=== PATIENT | male | born 1980 | race Caucasian/White ===

== ENCOUNTER → 2019-04-15 07:05 | Outpatient (CLI) | payer OTHER, SELFPAY ==
[2019-04-15 08:18] LABS: Hematocrit 43.9 % (41-53); Hemoglobin 14.4 g/dL (13.5-17.5); Mean Corpuscular HGB Conc 32.8 % (30-36); Mean Corpuscular Hemoglobin 26.9 PG (26-34); Mean Corpuscular Volume 81.9 fL (80-100); Platelet Count 306 X10^3/uL (150-400); Red Blood Cell Count 5.36 X10^6/uL (4.5-5.9); Red Cell Distribution Width 13.4 % (11.6-14.8); White Blood Cell Count 7.3 X10^3/uL (4.5-11.0)
[2019-04-15 08:22] LABS: Alanine Aminotransferase 47 IU/L (21-72); Albumin 4.5 g/dL (3.5-5.0); Albumin Globulin Ratio 1.2 (1.0-2.8); Alkaline Phosphatase 99 U/L (38-126); Aspartate Aminotransferase 39 IU/L (17-59); BUN Creatinine Ratio 14.4 (6-22); Bilirubin Total 0.6 mg/dL (0.2-1.3); Blood Urea Nitrogen 13 mg/dL (9-20); Calcium 9.8 mg/dL (8.4-10.2); Carbon Dioxide 28 mmol/L (22-32); Chloride 100 mmol/L (98-107); Cholesterol 194 mg/dL (140-199); Estimated Glomerular Filt Rate > 60.0 mL/min (>60); Globulin 3.7 g/dL (1.7-4.1); Glucose 96 mg/dL (70-100); HDL Cholesterol 35 mg/dL (40-60); HEMOLYSIS < 15 (0-50); LDL Cholesterol Calculated 126 mg/dL (<100); Potassium 3.9 mmol/L (3.4-5.1); Sodium 138 mmol/L (137-145); Total Protein 8.2 g/dL (6.3-8.2); Triglycerides 165 mg/dL (35-150)
[2019-04-15 08:50] LABS: TSH w/ Reflex to FT4 1.58 uIU/mL (0.47-4.68)
[2019-04-15 09:01] LABS: Neutrophils Absolute Manual 5110 /uL (3000-5900); Total Cells Counted 100
[2019-04-15 09:02] LABS: RBC Morphology Normal Morphology
== END ==
PROVIDERS: PCP Family Medicine; Visit Provider Family Medicine
DX: I10 Essential (primary) hypertension (principal); R53.83 Other fatigue
CPT/HCPCS: 36415; 80053; 80061; 84443; 85025

== ENCOUNTER → 2020-02-08 12:02 | Outpatient (CLI) | payer OTHER, SELFPAY ==
[2020-02-08 12:49] LABS: Add Manual Diff / Slide Review NO; Appearance Urine UA CLEAR; Basophils Absolute Auto 0 /uL (0-100); Basophils Percent Auto 0.5 % (0-2); Bilirubin Urine UA NEGATIVE (NEGATIVE); Color Urine UA YELLOW; Eosinophils Absolute Auto 100 /uL (0-450); Eosinophils Percent Auto 0.8 % (2-4); Glucose Urine UA NEGATIVE (Negative); Hematocrit 43.6 % (41-53); Hemoglobin 14.4 g/dL (13.5-17.5); Ketones Urine UA NEGATIVE (NEGATIVE); Leukocyte Esterase Urine UA NEGATIVE (NEGATIVE); Lymphocytes Absolute Auto 1100 /uL (1100-4500); Lymphocytes Percent Auto 12.9 % (25-40); Mean Corpuscular HGB Conc 33.1 % (30-36); Mean Corpuscular Hemoglobin 26.7 PG (26-34); Mean Corpuscular Volume 80.6 fL (80-100); Monocytes Absolute Auto 700 /uL (0-900); Monocytes Percent Auto 8.5 % (3-14); Neutrophils Absolute Auto 6500 /uL (1500-7000); Neutrophils Percent Auto 77.3 % (50-75); Nitrite Urine UA NEGATIVE (Negative); Occult Blood Urine UA TRACE-LYSED (Negative); Platelet Count 218 X10^3/uL (150-400); Protein Urine UA NEGATIVE (Negative); Red Blood Cell Count 5.41 X10^6/uL (4.5-5.9); Red Cell Distribution Width 13.8 % (11.6-14.8); Specific Gravity Urine UA 1.015 (1.000-1.035); Urobilinogen Urine UA 0.2 E.U./dL (0.2); White Blood Cell Count 8.4 X10^3/uL (4.5-11.0); pH Urine UA 6.5 (4.5-8.0)
[2020-02-08 13:02] LABS: Alanine Aminotransferase 34 IU/L (<50); Albumin 4.6 g/dL (3.5-5.0); Albumin Globulin Ratio 1.2 (1.0-2.8); Alkaline Phosphatase 85 U/L (38-126); Amylase 91 U/L (30-110); Aspartate Aminotransferase 34 IU/L (17-59); Bilirubin Total 0.5 mg/dL (0.2-1.3); Blood Urea Nitrogen 13 mg/dL (9-20); Calcium 9.9 mg/dL (8.4-10.2); Carbon Dioxide 28 mmol/L (22-32); Chloride 102 mmol/L (98-107); Estimated Glomerular Filt Rate > 60.0 mL/min (>60); Globulin 3.8 g/dL (1.7-4.1); Glucose 122 mg/dL (70-100); HEMOLYSIS < 15 (0-50); Potassium 3.7 mmol/L (3.4-5.1); Sodium 138 mmol/L (137-145); Total Protein 8.4 g/dL (6.3-8.2)
[2020-02-08 13:21] LABS: Bacteria Urine Occasional (0-1); Culture Indicated Urine Cult Not Indicated; RBC Urine 0-1/HPF (0-5/HPF); WBC Urine 0-1/HPF (0-5/HPF)
== END ==
PROVIDERS: PCP Family Medicine; Referring Provider Family Medicine; Visit Provider Family Medicine
DX: R10.32 Left lower quadrant pain (principal)
CPT/HCPCS: 36415; 80053; 81001; 82150; 85025

== ENCOUNTER → 2020-02-09 09:14 | Outpatient (CLI) | payer OTHER, SELFPAY ==
--- NOTE | 2020-02-09 09:46 | DI.CT.S_ITS ---
PROCEDURE: CT ABDOMEN PELVIS WO/W CON INDICATIONS: left lower flank pain TECHNIQUE: After the administration of oral contrast, 5 mm thick sections acquired from the diaphragms to the iliac crests. After the administration of intravenous contrast, 5 mm thick sections acquired from the diaphragms to the symphysis. 5 mm thick coronal and sagittal reformats were acquired. For radiation dose reduction, the following was used: automated exposure control, adjustment of mA and/or kV according to patient size. COMPARISON: None. FINDINGS: Image quality: Excellent. ABDOMEN: Lung bases: Lung bases are clear. Heart size is normal. Solid organs: Liver is normal in size and enhancement. Gallbladder appears normal. Biliary system is non-dilated. Pancreas enhances normally. Spleen is normal in size and enhancement. No adrenal nodules. Both kidneys are normal in size. No hydronephrosis or nephrolithiasis. There are several renal cortical cysts, present bilaterally, and the smaller cysts are too small to accurately characterize by CT scanning due to volume averaging. The largest cyst at the upper cortex of the left kidney measures water density. Bowel and peritoneum: Stomach, small and large bowel loops are normal in caliber and wall thickness. No free fluid or air. Nodes and vessels: No retroperitoneal or mesenteric adenopathy by size criteria. Aorta and inferior vena are normal in caliber. Miscellaneous: No ventral hernias. PELVIS: Genitourinary: Bladder wall thickness is normal. Miscellaneous: No inguinal hernias or adenopathy. At the left lower quadrant there is relatively extensive sigmoid diverticulosis noted, with definite acute diverticulitis at the junction of the descending colon as it enters the sigmoid colon. This is best seen centered on series 2 image 73 and there is no sign of peridiverticular abscess. Additionally, stranding in the pericolonic fat more posteriorly on the left is present to a slight degree, centered on series 6 image 88, chronicity uncertain. Bones: No suspicious bony lesions. No vertebral body compression fractures. IMPRESSION: Acute diverticulitis is present at the junction of the descending colon as its transitions to the sigmoid colon. The sigmoid colon itself demonstrates an unusually large number of diverticula for a young patient of age 39. No peridiverticular abscess is present. Additional slight stranding more posteriorly at the posterior third of the sigmoid colon may reflect inflammatory scarring from prior acute diverticulitis in that area. Alternatively, slight acute posterior left-sided diverticulitis in addition to the more evident diverticulitis anteriorly on the left could explain the appearance. Dictated by: Silvestre Ballard M.D. on 02/09/2020 at 10:31 Approved by: Silvestre Ballard M.D. on 02/09/2020 at 10:38
== END ==
PROVIDERS: PCP Family Medicine; Referring Provider Family Medicine; Visit Provider Family Medicine
DX: R10.32 Left lower quadrant pain (principal); N28.1 Cyst of kidney, acquired; K57.32 Diverticulitis of large intestine without perforation or abscess without bleeding
CPT/HCPCS: 74178; Q9967

== ENCOUNTER → 2024-03-08 16:53 | Outpatient (CLI) | payer OTHER, SELFPAY ==
[2024-03-08 17:16] LABS: Add Manual Diff / Slide Review NO; Basophils Absolute Auto 0 /uL (0-100); Basophils Percent Auto 0.4 % (0-2); Eosinophils Absolute Auto 200 /uL (0-450); Eosinophils Percent Auto 1.5 % (2-4); Hematocrit 37.3 % (41-53); Hemoglobin 12.1 g/dL (13.5-17.5); Lymphocytes Absolute Auto 1500 /uL (1100-4500); Lymphocytes Percent Auto 13.6 % (25-40); Mean Corpuscular HGB Conc 32.5 % (30-36); Mean Corpuscular Hemoglobin 26.4 PG (26-34); Mean Corpuscular Volume 81.3 fL (80-100); Monocytes Absolute Auto 900 /uL (0-900); Neutrophils Absolute Auto 8600 /uL (1500-7000); Neutrophils Percent Auto 76.5 % (50-75); Platelet Count 407 X10^3/uL (150-400); Red Blood Cell Count 4.59 X10^6/uL (4.5-5.9); Red Cell Distribution Width 13.4 % (11.6-14.8); White Blood Cell Count 11.3 X10^3/uL (4.5-11.0)
[2024-03-08 21:43] LABS: Alanine Aminotransferase 38 IU/L (<50); Alkaline Phosphatase 72 U/L (38-126); Aspartate Aminotransferase 41 IU/L (17-59); BUN Creatinine Ratio 15.1 (6-22); Bilirubin Total 0.6 mg/dL (0.2-1.3); Blood Urea Nitrogen 13 mg/dL (9-20); Calcium 9.6 mg/dL (8.4-10.2); Carbon Dioxide 24 mmol/L (22-32); Chloride 106 mmol/L (98-107); Estimated Glomerular Filt Rate > 60 mL/min (>60); Globulin 3.9 g/dL (1.7-4.1); Glucose 90 mg/dL (70-100); HEMOLYSIS < 15 (0-50); Potassium 3.9 mmol/L (3.4-5.1); Sodium 139 mmol/L (137-145); Total Protein 7.9 g/dL (6.3-8.2)
== END ==
PROVIDERS: PCP Family Medicine; Referring Provider Family Medicine; Visit Provider Family Medicine
DX: K57.32 Diverticulitis of large intestine without perforation or abscess without bleeding (principal)
CPT/HCPCS: 36415; 80053; 85025

== ENCOUNTER → 2024-03-11 08:56 | Outpatient (CLI) | payer OTHER, SELFPAY ==
--- NOTE | 2024-03-11 08:56 | DI.CT.S_ITS ---
PROCEDURE: CT ABDOMEN PELVIS W CON INDICATIONS: diverticulitis possible absceses TECHNIQUE: After the administration of intravenous contrast, axial sections acquired from the lung bases to the pubic symphysis. Coronal and sagittal reformats were performed. For radiation dose reduction, the following was used: automated exposure control, adjustment of mA and/or kV according to patient size. COMPARISON: [facility], CT, CT ABDOMEN PELVIS WO/W CON, 02/09/2020, 9:18. FINDINGS: Image quality: Diagnostic. Lower Chest: Oval 3.4 x 2.1 cm mass is seen at the posterior medial right lower extrapleural space between the 9th and 10th ribs (06/30). In retrospect, this has increased in size when compared to the CT from 02/09/2020, previously measuring approximately 2.6 x 1.5 cm. ABDOMEN: Liver: No solid mass. Gallbladder: No radiopaque gallstones or wall thickening. Biliary ducts: No biliary dilation. Pancreas: No ductal dilation. Spleen: Size is within normal limits. Adrenal Glands: No adrenal nodules. Kidneys and Ureters: No hydronephrosis. No solid mass. No complex renal cystic lesion which requires follow up. Bilateral hypoattenuating renal lesions are again mostly too small to characterize and not significantly changed compared to CT from 02/09/2020. Stable benign left upper pole renal cyst. Bowel and peritoneum: Multiple diverticula are seen in the colon. There is bowel wall thickening and fat stranding adjacent to the sigmoid colon consistent with diverticulitis. Inferior to the: Along the superior wall of the bladder, there is a thick-walled collection of fluid and gas with fluid-filled component measuring approximately 5.9 x 3.0 x 5.0 cm. Adjacent linear Nathan changes track superiorly towards the colon. Small amount of fluid and gas is also seen superior to the sigmoid colon measuring up to 2.4 x 1.6 by 1.7 cm with ill-defined margins. No separate free air is seen. Small bowel loops and stomach are unremarkable. Oral contrast material is seen extending to the ascending colon. Ventral Wall: No significant ventral hernia. Abdominal Nodes: No retroperitoneal or mesenteric adenopathy by size criteria. Vessels: Aorta and inferior vena cava are normal in size. PELVIS: Pelvic Organs: Unremarkable. Bladder: Superior bladder wall thickening is seen adjacent to the abscess. No intraluminal gas is seen. Pelvic Nodes: No enlarged lymph nodes. Miscellaneous: No inguinal hernias are seen. Bones: No aggressive osseous abnormality. IMPRESSION: 1. Ruptured sigmoid colon diverticulitis with adjacent collection of fluid and gas along the superior wall of the bladder suspicious for abscess. No intraluminal gas is seen within the bladder. Small foci of inflammatory tissue and gas are seen along the superior and lateral margins of the sigmoid colon without significant associated fluid. No separate focus of free air within the remainder of the abdomen or pelvis. 2. 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 Attempt was made to contact the ordering provider at the time of this dictation and additional attempts will be made. Approved by: Taras Barton M.D. on 03/11/2024 at 11:43
== END ==
LOC: CT 08:56
PROVIDERS: PCP Family Medicine; Referring Provider Family Medicine; Visit Provider Family Medicine
DX: K57.32 Diverticulitis of large intestine without perforation or abscess without bleeding (principal); R93.89 Abnormal findings on diagnostic imaging of other specified body structures; N28.1 Cyst of kidney, acquired
CPT/HCPCS: 74177; Q9967

== ENCOUNTER → 2024-03-16 09:59 | Outpatient (CLI) | payer OTHER, SELFPAY ==
--- NOTE | 2024-03-16 12:30 | DI.CT.S_ITS ---
PROCEDURE: CT ABDOMEN PELVIS W CON INDICATIONS: f/u diverticulititis TECHNIQUE: After the administration of intravenous contrast, axial sections acquired from the lung bases to the pubic symphysis. Coronal and sagittal reformats were performed. For radiation dose reduction, the following was used: automated exposure control, adjustment of mA and/or kV according to patient size. COMPARISON: Merged With [facility], CT, CT ABDOMEN PELVIS WO/W CON, 02/09/2020, 9:18. Merged With [facility], CT, CT ABDOMEN PELVIS W CON, 03/11/2024, 9:59. FINDINGS: Image quality: Diagnostic. Lower Chest: 3.5 by 2.3 centimeter pleural based mass in the medial aspect of the right lung base stable compared to March 11, 2024. ABDOMEN: Liver: No solid mass. Diffuse fatty infiltration of the liver. Gallbladder: No radiopaque gallstones or wall thickening. Biliary ducts: No biliary dilation. Pancreas: No ductal dilation. Spleen: Size is within normal limits. Adrenal Glands: No adrenal nodules. Kidneys and Ureters: No hydronephrosis. No solid mass. No complex renal cystic lesion which requires follow up. Stomach and Bowel: Multiple colonic diverticuli. Circumferential wall thickening adjacent inflammation involving the sigmoid colon compatible with diverticulitis. Diverticular inflammatory changes have diminished compared to March 11, 2024. There is a 2.7 x 3.0 x 2.1 centimeter thick-walled fluid collection situated between the sigmoid colon in the urinary bladder consistent with peridiverticular abscess which is decreased in size compared to March 11, 2024. Small air locules in the mesocolon at superior margin of the sigmoid colon. The appendix is normal. Ventral Wall: No significant ventral hernia. Abdominal Nodes: No retroperitoneal or mesenteric adenopathy by size criteria. Vessels: Aorta and inferior vena cava are normal in size. PELVIS: Pelvic Organs: Unremarkable. Bladder: No bladder wall thickening, accounting for underdistention. Pelvic Nodes: No enlarged lymph nodes. Miscellaneous: No inguinal hernias are seen. Bones: No aggressive osseous abnormality. IMPRESSION: Sigmoid colon diverticulitis. Inflammatory changes have diminished compared to March 11, 2024. Peridiverticular abscess and free air consistent with diverticular rupture. Peridiverticular abscess is decreased in size compared to March 11, 2024. Stable right basilar pleural based mass. Recommend PET-CT scan and/or biopsy for definitive characterization. Hepatic steatosis. Dictated by: Zaida Martinez MD, PhD on 03/16/2024 at 11:44 Approved by: Zaida Martinez MD, PhD on 03/16/2024 at 11:55
== END ==
PROVIDERS: PCP Family Medicine; Referring Provider Surgery; Visit Provider Surgery
DX: K57.20 Diverticulitis of large intestine with perforation and abscess without bleeding (principal); J94.9 Pleural condition, unspecified; K76.0 Fatty (change of) liver, not elsewhere classified
CPT/HCPCS: 74177; 99214; Q9967

== ENCOUNTER 2024-03-18 12:19 | Inpatient (IN) | payer OTHER, SELFPAY ==
[2024-03-17 09:40] VITALS: BMI 36.9
[2024-03-18] VITALS (13 sets, daily range): BP systolic 114–137; BP diastolic 67–93; PULSE 79–101; RESP 5–20; TEMP 35.4–37.2; O2SAT 93–99; BMI 36.9
--- NOTE | 2024-03-18 | PATH_ITS ---
[facility] Accession Number: [id number] No. of containers..01 Tissue . 01 Material submitted: . sigmoid colon - SIGMOID COLON, SEGMENTAL RESECTION . 01 Diagnosis: SIGMOID COLON, SEGMENTAL RESECTION: 1. Severe diverticulitis, with submucosal abscess formation, areas of fat necrosis and active serositis. 2. Twelve reactive lymph nodes with no evidence of neoplasia. 3. Mural inflammation and fat necrosis approximates one (blue-inked) stapled surgical margin. [facility] 03/24/2024 1721 Local . 01 Electronically signed: . Sudeep Willett MD, Pathologist NPI- [id number] . 01 Gross description: . Received in formalin with no identifiers or designation (authorization form received), is an unoriented looped portion of bowel, 30.6 cm in length and 3.0 to 3.5 cm in diameter with creeping firm fat. The serosa is abreu to congested. One staple line is inked blue, the opposite staple line is inked black, and the mesenteric margin is inked green. The lumen is universally narrow, approximately 0.1 to 0.2 cm in diameter, but is probe patent. The mucosa is pink-abreu and velvety with contorted folds and no distinct lesions identified. The joel are diffusely thickened and firm measuring up to 0.7 cm thick with multiple diverticula identified measuring up to 1.1 cm with several containing brown hard fragments consistent with fecaliths measuring up to 0.7 cm in greatest dimension. Several areas of adjacent fat are odell-abreu and soft, consistent with necrosis, but no distinct areas of perforation are grossly identified. Palpation reveals 12 abreu lymph node candidates ranging from 0.2 to 0.6 cm in greatest dimension. . [employer]ed [employer] Installer sections are submitted as follows: A1: Rep margins en face. A2-A3: Diverticula. A4-A5: Fibrotic and possibly necrotic adipose with full thickness colon. A6-A7: Additional full thickness sections. A8: Two differentially inked bisected lymph node candidates. A9: Two differentially inked bisected lymph node candidates. A10: Two differentially inked bisected lymph node candidates. A11: Two differentially inked bisected lymph node candidates. A12: Two intact lymph node candidates. A13: Single bisected lymph node candidate. A14: Single bisected lymph node candidate. ([id number]) /MRV 03/24/2024 1721 Local . 01 Pathologist provided ICD-10: K57.32 . 01 CPT . 287405 Specimen Comment: A courtesy copy of this report has been sent to [phone] Performed at: [address] [facility] [address], [place], [place] [id number] MD Sudeep Willett MD Phone: [phone]
[2024-03-18] MEDS: ACETAMINOPHEN 325 MG TABLET 975 MG PO (12:53)
[2024-03-18] MEDS: LACTATED RINGERS 1,000 ML 42 ML IV ×4 (12:57→18:30)
--- NOTE | 2024-03-18 14:44 | PM.PREOP ---
Pre-operative Note Interval Note History & Physical reviewed/Exam performed by Physician: Yes Changes to H&P: No
[2024-03-18] MEDS: PIPERACILLIN/TAZO 3.375 GM in SODIUM CHLORIDE 0.9% 100 ML IV ×2 (15:21→20:04)
[2024-03-18] MEDS: BUPIVACAINE 0.25% (PF) VIAL 30 ML INJ (16:38)
--- NOTE | 2024-03-18 19:12 | SUR.OPER ---
Lithotomy on padded OR bed. [place] Pad Positioner under torso. Head on pillow, arms padded and tucked at sides. Legs secured in padded yellow fins stirrups.
--- NOTE | 2024-03-18 19:17 | P.OP_ITS ---
Operative Date/Time/Diagnoses Date of procedure: 03/18/24 Time of procedure: 19:17 Pre-op diagnosis: Perforated diverticulitis, intra-abdominal abscess Post-op diagnosis: same Procedure & Clinicians Procedure: Laparoscopic assisted sigmoid colectomy Placement of ventral hernia mesh Same procedure as scheduled: Yes Indications: Tate is a 43-year-old man with a long history of diverticulitis. He had an episode of complicated diverticulitis with perforation and subsequent formation of a intra-abdominal abscess between the colon and the bladder. Abscess was not amenable to percutaneous drainage. He has had 2 weeks of antibiotic therapy and is failing to improve. He is taken to the operating room today for a sigmoid colectomy with possible ostomy. Surgeon: Kerwin Richards Electronics Recycler: Shoaib Perez Anesthesia Type: General Operative Notes Findings: Negative leak test Sigmoid colon adherent to the abdominal wall down to the level of the pelvic floor. The mid rectum is soft and pliable Specimen(s): other (Sigmoid colon) Estimated Blood Loss (mL): 500 Procedure in detail: The patient was brought to the operating room and placed supine on the table. Bilateral lower extremity compression devices were applied. General anesthesia was induced and they were intubated with an endotracheal tube. They were placed in the lithotomy position and prepped and draped in sterile fashion. A medina catheter was placed under sterile condition. They received 3.375 g of Zosyn prior to skin incision. Time-out was performed to ensure the correct patient procedure necessary equipment within the operating room. An infraumbilical 1 cm incision was made, the umbilical stalk was elevated, the fascia was sharply incised and the abdomen was entered atraumatically. Pneumoperitoneum was established. The laparoscope was inserted into the abdomen, inspection was made there was no evidence of injury upon entry. 5 mm ports were placed suprapubic, left lower quadrant and a 12 mm trocar in the right lower quadrant. There was significant intra abdominal obesity which made exposure of the sigmoid colon quite difficult. We mobilized the descending colon along its lateral attachment following the white line of Toldt to the level of the splenic flexure. The sigmoid colon was densely adherent to the abdominal wall and with his intra- abdominal obesity it was difficult to proceed any further laparoscopically. We made a lower midline incision self-retaining retractor was placed. We used finger fracture to separate the colon from the pelvic sidewall and sigmoid colon was essentially rigid all the way down to the level of the pelvic floor. We were able to identify the left ureter as noted by its vermiculation and this was kept posterior out of harm's way. We encountered multiple abscess cavities within the pelvis which were largely devoid of purulent material but the rind was resected. Window within the distal colon at the junction of the descending and sigmoid colon where the bowel was soft and pliable was made and then the bowel was divided using the contour stapler. The mesentery was divided close to the bowel wall using the ligature. The distal point of transection was distal to the rectosigmoid junction where the bowel was soft and pliable. The specimen was passed off the field labeled sigmoid colon. The rectum was sized and found to be 33 mm. The staple line was excised. A 3-0 Prolene suture was pursestrung and a 31 mm EEA anvil was placed. The distal colon reached to the pelvis without tension. The EEA stapler was advanced through the rectum and its point was deployed under direct visualization through the rectal staple line. Ensuring that the colon mesentery was without twist, the anvil and stapler were mated and the anastomosis was completed without tension. The stapler was removed. The proximal bowel was occluded, the pelvis filled with saline and insufflation of the rectum demonstrated no leak. The abdomen was copiously irrigated and hemostasis checked. The midline fascia was closed with #PDS running fashion. I deemed him to be at significant risk of incisional hernia given his obesity, contaminated nature of the case and the length of the incision. Therefore we placed a sheet of Phasix mesh over the anterior sheath to reduce the risk of hernia formation. Bilateral skin flaps were raised and a 20 x25 cm sheet of mesh was trimmed to size and then secured to the anterior sheath using Ethibond. The subcutaneous tissues were reapproximated using 3 0 Vicryl, skin closed with anastasia. The sponge instrument count at the end of the operation was correct. The patient emerged from general anesthesia, extubated and transferred to the postoperative care unit in stable condition. Complications: none Post-operative Condition: stable Disposition: Acute Care
[2024-03-18] MEDS: ONDANSETRON 4 MG/2 ML INJ IV (20:03)
[2024-03-18] MEDS: CELECOXIB 200 MG CAPSULE PO (21:32)
[2024-03-18] MEDS: SODIUM CHLORIDE 0.9% 1,000 ML 150 ML IV (21:33)
[2024-03-18] MEDS: OXYCODONE IR 5 MG TABLET PO (23:40)
[2024-03-18] MEDS: ACETAMINOPHEN 325 MG TABLET 650 MG PO (23:40)
[2024-03-19] VITALS (9 sets, daily range): BP systolic 113–129; BP diastolic 69–79; PULSE 66–90; RESP 16–18; TEMP 36.3–36.6; O2SAT 97–98
[2024-03-19] MEDS: PIPERACILLIN/TAZO 3.375 GM in SODIUM CHLORIDE 0.9% 100 ML IV ×2 (03:55→13:08)
[2024-03-19] MEDS: OXYCODONE IR 5 MG TABLET PO ×5 (03:59→22:47)
[2024-03-19] MEDS: SODIUM CHLORIDE 0.9% 1,000 ML 150 ML IV (03:59)
[2024-03-19 06:19] LABS: Add Manual Diff / Slide Review NO; Basophils Absolute Auto 0 /uL (0-100); Basophils Percent Auto 0.1 % (0-2); Eosinophils Absolute Auto 0 /uL (0-450); Hematocrit 33.1 % (41-53); Lymphocytes Absolute Auto 700 /uL (1100-4500); Lymphocytes Percent Auto 4.7 % (25-40); Mean Corpuscular HGB Conc 33.3 % (30-36); Mean Corpuscular Hemoglobin 26.8 PG (26-34); Mean Corpuscular Volume 80.5 fL (80-100); Monocytes Absolute Auto 900 /uL (0-900); Monocytes Percent Auto 6.6 % (3-14); Neutrophils Absolute Auto 12600 /uL (1500-7000); Neutrophils Percent Auto 88.6 % (50-75); Platelet Count 391 X10^3/uL (150-400); Red Blood Cell Count 4.11 X10^6/uL (4.5-5.9); Red Cell Distribution Width 13.7 % (11.6-14.8); White Blood Cell Count 14.2 X10^3/uL (4.5-11.0)
[2024-03-19 06:30] LABS: BUN Creatinine Ratio 12.4 (6-22); Blood Urea Nitrogen 11 mg/dL (9-20); Carbon Dioxide 25 mmol/L (22-32); Chloride 108 mmol/L (98-107); Estimated Glomerular Filt Rate > 60 mL/min (>60); Glucose 142 mg/dL (70-100); HEMOLYSIS < 15 (0-50); Potassium 4.5 mmol/L (3.4-5.1); Sodium 136 mmol/L (137-145)
[2024-03-19] MEDS: ACETAMINOPHEN 325 MG TABLET 650 MG PO ×2 (09:55→20:19)
[2024-03-19] MEDS: CELECOXIB 200 MG CAPSULE PO ×2 (09:55→20:18)
--- NOTE | 2024-03-19 11:28 | CM.DANOTE ---
Initial DCP Assessment Note Pt is a 43 yo male, resident of [place], now POD#1 from lap assisted colectomy by Dr Richards. PCP: Grant Parikh Payer: UMR Reviewed chart, pt discussed in multidisciplinary rounds this morning. Patient expected to be admitted for an additional 3-5 days. 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 Indp and active at baseline. No barriers identified at this time to patient's safe discharge home w/family to assist; close outpatient f/u recommended. CM team will plan to follow clinical course closely in case any DC needs or concerns arise. DALTON Esquivel Discharge Planning/Care Management CM Discharge Assessment Start: 03/19/24 11:20 Freq: Status: Active Protocol: Document 03/19/24 11:20 MENDOZA (Rec: 03/19/24 11:28 MENDOZA [id number]) Discharge Planning Assessment Assigned Band Director DALTON Pablo DPOA/Assigned Designee Name Altagracia Sherwood, spouse Contact Information [phone] Advance Directives? No History Provided By Patient,Family Member,Medical Record Prior Living Arrangements House Household Members spouse,children Type of transporation used prior to Drives own vehicle admit Independent with ADL's Yes Is patient alert and oriented? Yes Barriers to Discharge No Discharge Plan Home Transportation Arrangement Family Referrals Initiated None needed
--- NOTE | 2024-03-19 12:15 | P.PN_ITS ---
Subjective Subjective Date Patient Seen: 03/19/24 Time Patient Seen: 12:15 Interval history: Postoperative day 1 status post sigmoid colectomy for complicated diverticulitis No major overnight events. Incisional pain but controlled. No nausea. Exam Vital Signs (past 8 hours): - 03/19/24 04:30 03/19/24 07:00 03/19/24 08:00 Temperature 97.9 F 97.4 F L Pulse Rate 74 66 Respiratory Rate 16 18 Blood Pressure 120/79 113/75 Pulse Oximetry 97 97 97 Oxygen Delivery Method Room Air Oxygen Flow Rate 0 0 03/19/24 09:25 Temperature Pulse Rate Respiratory Rate Blood Pressure Pulse Oximetry Oxygen Delivery Method Room Air Oxygen Flow Rate Oxygen Delivery Method Room Air Oxygen Flow Rate 0 Narrative Exam Narrative: General adult man alert oriented no acute distress Chest nonlabored respiration Abdomen appropriately tender to palpation. Objective Labs 03/19/24 05:00 03/19/24 05:00 Labs: Laboratory Results - last 24 hr 03/19/24 05:00 WBC 14.2 H RBC 4.11 L Hgb 11.0 L Hct 33.1 L MCV 80.5 MCH 26.8 MCHC 33.3 RDW 13.7 Plt Count 391 Neut % (Auto) 88.6 H Lymph % (Auto) 4.7 L [place] % (Auto) 6.6 Eos % (Auto) 0.0 L Baso % (Auto) 0.1 Neut # (Auto) 20325 H Lymph # (Auto) 700 L [place] # (Auto) 900 Eos # (Auto) 0 Baso # (Auto) 0 Sodium 136 L Potassium 4.5 Chloride 108 H Carbon Dioxide 25 BUN 11 Creatinine 0.89 Estimated GFR > 60 BUN/Creatinine Ratio 12.4 Glucose 142 H Calcium 9.0 PFSH Medical History COVID-19 (06/2023) Surgical History [place] teeth removed History of surgery Social History marital status: number of children: 2 household members: spouse and children Smoking Status: Never smoker alcohol intake: never substance use type: does not use Assessment & Plan Post-op Postoperative Procedures: Procedures Operation Date: 03/18/24 13:45 Actual Procedure Side Surgeon p SIGMOID COLECTOMY WITH PLACEMENT OF VENTRAL MESH Not Applicable Kerwin Richards MD Postoperative status narrative: 43-year-old man postoperative day 1 status post sigmoid colectomy for complicated diverticulitis. Doing well continue with routine postoperative care. -full liquid diet advance what when return of bowel function -DC IV fluids -SCDs and prophylactic Lovenox -remove Pedraza catheter -PTOT Quality VTE Deep Vein Thrombosis/Pulmonary Embolism Present on Admission: No
--- NOTE | 2024-03-19 16:00 | OT.IP.EVAL ---
Current Diagnoses Diverticulitis of large intestine without perforation or abscess without bleeding (03/18/24) Surgery Performed Operation Date: 03/18/24 13:45 Actual Procedures p SIGMOID COLECTOMY WITH PLACEMENT OF VENTRAL MESH(Not Applicable) - Kerwin Richards MD Past Medical History (Last Reviewed 03/17/24 @ 16:11 by Kerwin Richards MD) COVID-19 (06/2023) Surgical History (Last Reviewed 03/17/24 @ 16:11 by Kerwin Richards MD) History of surgery [place] teeth removed Occupational Therapy Inpatient Evaluation/Re-Eval M1 PT/OT-IP Prior Functional Status Start: 03/19/24 12:56 Freq: NEEDED Status: Active Protocol: Document 03/19/24 15:33 [facility] (Rec: 03/19/24 16:00 [facility] [id number]) Medical Review Prior Functional Status Communication Independent Mobility and Gait Independent with no devices. 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 Social History Household Members spouse,children Living Arrangements House Number of Floors (Floors) Two Floors Number of Stairs To Enter/Railing? No steps to enter. 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 M2 OT-IP Current Condition Start: 03/19/24 12:56 Freq: Status: Active Protocol: Document 03/19/24 15:33 [facility] (Rec: 03/19/24 16:00 [facility] [id number]) Occupational Therapy Current Condition Current Condition Evaluation Date 03/19/24 Treatment Diagnosis Perforated diverticulitis, laparoscopic assisted sigmoid colectomy Diagnosis Onset Date 03/18/24 Post Operative Precautions Abdominal Surgery Precautions Log Roll,Lifting Restrictions, Gait Belt above Incisional Area M3 OT- IP Subjective and Pain Start: 03/19/24 12:56 Freq: Status: Active Protocol: Document 03/19/24 15:33 [facility] (Rec: 03/19/24 16:00 [facility] [id number]) OT- Subjective Occupational Therapy Visit Type Type Initial Evaluation Visit Start Time 11:30 Visit Stop Time 12:00 Occupational Therapy Visit Comments Patient Comments Pt agreed to get up. Patient/Caregiver Goals To go home. OT Pain Assessment Pain When Pain Assessed At Rest Pain Present Pain Present Pain Reported Location abdomen Intensity 4 Scale Used Numeric (0 - 10) M4 OT- IP ADL's Start: 03/19/24 12:56 Freq: Status: Active Protocol: Document 03/19/24 15:33 [facility] (Rec: 03/19/24 16:00 [facility] [id number]) OT ADL-Grooming General Evaluation Grooming Ability Standby Assistance Areas Needing Assistance Retrieving/Set-up of Grooming Items Comments OT Grooming Comments While seated. OT ADL-Oral Care General Eval Oral Care Ability Independent OT ADL-Dressing General Eval Lower Body Dressing Ability Maximum Assistance Areas Needing Assistance Socks Comments OT Dressing Comments Able to go over LB dressing equipment and issued to pt as pt having pain while reaching for LB dressing needs. OT ADL-Toileting Comments OT Toileting Comments Not performed. Suggested use of wet wipes and to stand for hygiene needs. Spoke of bidet, toilet paper aid , versus may need assist for completeness to wipe due to his pain. OT ADL-Bathing Comments OT Bathing Comments Suggested pt get a shower chair for safety as a little unsteady on his feet. M5 OT- IP IADL's Start: 03/19/24 12:56 Freq: Status: Active Protocol: Document 03/19/24 15:33 [facility] (Rec: 03/19/24 16:00 [facility] [id number]) OT-Instrumental Activities of Daily Living Deficits IADL Deficits Identified Deficits Home Safety Awareness Awareness of Need for Assistance at Home Good Awareness Ability to Problem Solve Emergency Able to Problem Solve Situations Home Safety Comments Pt a little groggy, and has a supportive who is a PT to be able to assist wit his needs. M6 OT- IP Functional Cognition Start: 03/19/24 12:56 Freq: Status: Active Protocol: Document 03/19/24 15:33 [facility] (Rec: 03/19/24 16:00 [facility] [id number]) Cognitive Factors Limiting Selfcare Function Cognitive Ability Level of Alertness Alert,Drowsy Patient Orientation Name,Place,Situation Attention Span Ability Capable of Focused Attention, Capable of Sustained Attention Ability to Follow Commands Able to Follow One Step Commands with Increased Time, Able to Follow One Step Commands with Repetition Cognitive Comments Cognitive Assessment Comments Pt very groggy and needing step by step commands to follow log rolling and safety needs. OT- Vision and Hearing OT- Hearing Assessment OT- Hearing Assessment WFL OT- Vision Assessment Visual Acuity WFL,Glasses All The Time, Contact Lenses Visual Attentiveness WFL Occular Pursuits WFL M7 OT- IP Mobility and Balance Start: 03/19/24 12:56 Freq: Status: Active Protocol: Document 03/19/24 15:33 [facility] (Rec: 03/19/24 16:00 [facility] [id number]) OT- Bed Mobility Assessment Supine to Sit Supine to Sit Assist Contact Guard Assistance Scooting Scooting to Edge of Bed Contact Guard Assistance OT-Transfer Assessment Sit to and From Stand Sit to and from Stand Minimal Assistance Transfers Transfer Ability Contact Guard Assistance, Minimal Assistance Technique Transfer Destination Bed,Chair Transfer Technique Stand Step Pivot Devices Transfer Assistive Devices Gait Belt,Front Wheeled Walker Comments Mobility Comments CGA for bed mobility to be sure to keep his trunk in side-lying before getting up to the edge of the bed. CGA to stand to the FWW and CGA/PAULA to transfer to the recliner. OT- Balance Assessment Sitting Balance and Reactions Static Sitting Balance Ability Good Dynamic Sitting Balance Ability Good Standing Balance and Reactions Static Standing Balance Ability Fair Dynamic Standing Balance Ability Fair M8 OT- IP Objective Assessments Start: 03/19/24 12:56 Freq: Status: Active Protocol: Document 03/19/24 15:33 [facility] (Rec: 03/19/24 16:00 [facility] [id number]) OT Gross Range of Motion Upper Extremity Range of Motion Assessment Within Functional Limits OT Strength Upper Extremity Strength Assessment Within Functional Limits OT-Muscle Tone Assessment Muscle Tone WNL Yes M9 OT- IP Assessment and Plan Start: 03/19/24 12:56 Freq: Status: Active Protocol: Document 03/19/24 15:33 [facility] (Rec: 03/19/24 16:00 [facility] [id number]) OT Summary Assessment and Plan Potential Rehabilitation Potential Excellent Analytic Complexity at Evaluation Low Summary OT Impairments Pain,Balance,Functional Mobility,Dressing,Toileting, Bathing,Toilet Transfers, Shower Transfers,Activity Tolerance Progress Towards Goals Progressing Toward Goals Assessment Summary Pt low complexity and main barriers are pain and a bit groggy from surgery. Able to educated pt on abdominal surgery precautions, practice use of LB dressing equipment which was issued, and also able to suggest other ADL equipment needs. Pt's in ICU PT and is very capable to be able to assist pt for all his needs at home. Pt to go home when medically stable with assist. Discharge pt from OT services. Frequency of Treatment Frequency Of Treatment Discharge Discharge Recommendations OT Discharge Recommendations Home with 21/04 Assist Available Transportation Needs at Discharge Private Vehicle
--- NOTE | 2024-03-19 16:07 | OT.IPNOTE ---
Discharge pt from OT services. Pt to go home with his supportive , when medically stable.
--- NOTE | 2024-03-19 17:11 | PT.IIE ---
Current Diagnoses Diverticulitis of large intestine without perforation or abscess without bleeding (03/18/24) Surgery Performed Operation Date: 03/18/24 13:45 Actual Procedures p SIGMOID COLECTOMY WITH PLACEMENT OF VENTRAL MESH(Not Applicable) - Kerwin Richards MD Surgical History (Last Reviewed 03/17/24 @ 16:11 by eKrwin Richards MD) History of surgery [place] teeth removed Medical History (Last Reviewed 03/17/24 @ 16:11 by Kerwin Richards MD) COVID-19 (06/2023) Physical Therapy Inpatient Evaluation/Re-Eval M1 PT/OT-IP Prior Functional Status Start: 03/19/24 12:56 Freq: NEEDED Status: Active Protocol: Document 03/19/24 15:33 [facility] (Rec: 03/19/24 16:00 [facility] [id number]) Medical Review Prior Functional Status Communication Independent Mobility and Gait Independent with no devices. 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 Social History Household Members spouse,children Living Arrangements House Number of Floors (Floors) Two Floors Number of Stairs To Enter/Railing? No steps to enter. 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 Social History Household Members spouse,children Living Arrangements House Number of Floors (Floors) Two Floors Number of Stairs To Enter/Railing? No steps to enter. 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 M2 PT-IP Current Condition Start: 03/19/24 16:57 Freq: NEEDED Status: Active Protocol: Document 03/19/24 16:58 KJ (Rec: 03/19/24 17:11 KJ [id number]) Physical Therapy Current Condition Current Condition Evaluation Date 03/19/24 Treatment Diagnosis impaired mobility Onset Date 03/18/24 M3 PT-IP Subjective Start: 03/19/24 16:57 Freq: NEEDED Status: Active Protocol: Document 03/19/24 16:58 KJ (Rec: 03/19/24 17:11 KJ [id number]) Subjective Physical Therapy Visit Type Type Initial Evaluation Visit Start Time 16:22 Visit Stop Time 16:54 Physical Therapy Visit Comments Patient Goals To be able to walk and go home Therapy Pain Assessment Pain When Pain Assessed At Rest Pain Present Pain Present Pain Reported Location abdomen Description Aching Pain Management Techniques Distraction M4 PT-IP Mobility and Gait Start: 03/19/24 16:57 Freq: NEEDED Status: Active Protocol: Document 03/19/24 16:58 KJ (Rec: 03/19/24 17:11 KJ [id number]) PT-Bed Mobility Assessment Rolling Type of Rolling Log Rolling Level of Assist Contact Guard Assistance Supine to Sit Supine to Sit Contact Guard Assistance PT-Transfer Assessment Sit to and From Stand Sit to and from Stand Contact Guard Assistance Equipment Transfer Assistive Device Gait Belt,Front Wheeled Walker Transfers Transfer Destination Chair Transfer Technique Stand Step Pivot Transfer Ability Level of Assist Contact Guard Assistance Gait Assessment Gait Gait Assistance Required: Contact Guard Assist Distance (Feet) 15 Assistive Devices Assistive Device Gait Belt,Front Wheeled Walker Gait Deviations General Gait Pattern Decreased Stride Length Factors Limiting Gait Function Factors Limiting Gait Function Decreased Activity Tolerance Comments Gait Comments Gait is slow and steady. PT-Balance Assessment Sitting Balance and Reactions Static Sitting Balance Ability Good Dynamic Sitting Balance Ability Good Standing Balance and Reactions Static Standing Balance Ability Good M5 PT-IP Objective Assessments Start: 03/19/24 16:57 Freq: NEEDED Status: Active Protocol: Document 03/19/24 16:58 KJ (Rec: 03/19/24 17:11 KJ [id number]) Orientation Orientation/Cognition Level of Alertness Alert Orientation Name,Age,Birthday,Month,Date, Year,Day of Week,Place, Situation Language Function Ability No Deficits Noted Safety Awareness Understands Safety Issues Gross Range of Motion Upper Extremity ROM Assessment Within Functional Limits Lower Extremity ROM Assessment Bilaterally Impaired Impairments guarded due to abdominal surgery Strength Comments Strength Comments knee ext 5/5 bilat M6 PT-IP Treatment Start: 03/19/24 16:57 Freq: NEEDED Status: Active Protocol: Document 03/19/24 16:58 KJ (Rec: 03/19/24 17:11 KJ [id number]) Physical Therapy Treatment Exercises Exercises Ankle Pumps,Gluteal Sets,Quad Sets Education Education Provided Precautions Other Treatments Other Treatment Performed reviewed log rolling and precautions for abdominal surgery M7 PT-IP Assessment and Plan Start: 03/19/24 16:57 Freq: NEEDED Status: Active Protocol: Document 03/19/24 16:58 KJ (Rec: 03/19/24 17:11 KJ [id number]) PT Summary Assessment and Plan Potential Rehabilitation Potential Excellent Status of Condition at Evaluation Stable Summary Impairments Pain Progress Towards Goals Slow Progress due to Pain Goals Bed Mobility Goal Independent Transfer Goal Independent Gait Goal Independent Gait Distance 50' Other Goals ascend/descend 1 step w/rail or walker Days to Meet Goals 5 Frequency of Treatment Frequency Of Treatment Once a Day Treatment Plan Physical Therapy Treatment Plan Bed Mobility Training,Transfer Training,Gait Training, Therapeutic Exercise Other Recommendations and Next Treatment encourage deep breathing Focus Recommendations To Nursing Amount of Assist Needed Standby Assistance Discharge Recommendations PT Discharge Recommendations Home with Assistance Transportation Needs at Discharge Private Vehicle
[2024-03-20] VITALS (8 sets, daily range): BP systolic 116–140; BP diastolic 76–92; PULSE 63–84; RESP 16–17; TEMP 36.3–36.7; O2SAT 93–98
[2024-03-20] MEDS: OXYCODONE IR 5 MG TABLET PO ×5 (02:56→20:18)
[2024-03-20 06:32] LABS: Add Manual Diff / Slide Review NO; Basophils Absolute Auto 0 /uL (0-100); Basophils Percent Auto 0.4 % (0-2); Eosinophils Absolute Auto 0 /uL (0-450); Eosinophils Percent Auto 0.2 % (2-4); Hematocrit 29.6 % (41-53); Hemoglobin 9.9 g/dL (13.5-17.5); Lymphocytes Absolute Auto 1500 /uL (1100-4500); Lymphocytes Percent Auto 13.7 % (25-40); Mean Corpuscular HGB Conc 33.4 % (30-36); Mean Corpuscular Volume 80.9 fL (80-100); Monocytes Absolute Auto 900 /uL (0-900); Monocytes Percent Auto 8.4 % (3-14); Neutrophils Absolute Auto 8500 /uL (1500-7000); Neutrophils Percent Auto 77.3 % (50-75); Platelet Count 319 X10^3/uL (150-400); Red Blood Cell Count 3.66 X10^6/uL (4.5-5.9); Red Cell Distribution Width 13.6 % (11.6-14.8)
[2024-03-20 06:46] LABS: BUN Creatinine Ratio 12.6 (6-22); Blood Urea Nitrogen 11 mg/dL (9-20); Calcium 8.2 mg/dL (8.4-10.2); Carbon Dioxide 26 mmol/L (22-32); Chloride 109 mmol/L (98-107); Estimated Glomerular Filt Rate > 60 mL/min (>60); Glucose 99 mg/dL (70-100); HEMOLYSIS < 15 (0-50); Potassium 4.1 mmol/L (3.4-5.1); Sodium 137 mmol/L (137-145)
[2024-03-20] MEDS: CELECOXIB 200 MG CAPSULE PO ×2 (08:17→20:19)
[2024-03-20] MEDS: lisinopriL 20 MG TABLET PO (08:20)
[2024-03-20] MEDS: ACETAMINOPHEN 325 MG TABLET 650 MG PO ×2 (08:20→15:34)
[2024-03-20] MEDS: OXYCODONE IR 10 MG TABLET PO ×4 (08:21→18:07)
[2024-03-20] MEDS: HYDROMORPHONE 0.5 MG INJ IV ×5 (08:21→17:54)
[2024-03-20] MEDS: ONDANSETRON 4 MG/2 ML INJ IV ×2 (08:22→16:47)
--- NOTE | 2024-03-20 14:20 | PT.IPTN ---
Current Diagnoses Diverticulitis of large intestine without perforation or abscess without bleeding (03/18/24) Surgery Performed Operation Date: 03/18/24 13:45 Actual Procedures p SIGMOID COLECTOMY WITH PLACEMENT OF VENTRAL MESH(Not Applicable) - Kerwin Richarsd MD Physical Therapy Treatment Note M2 PT-IP Current Condition Start: 03/19/24 16:57 Freq: NEEDED Status: Active Protocol: Document 03/19/24 16:58 KJ (Rec: 03/19/24 17:11 KJ [id number]) Physical Therapy Current Condition Current Condition Evaluation Date 03/19/24 Treatment Diagnosis impaired mobility Onset Date 03/18/24 M3 PT-IP Subjective Start: 03/19/24 16:57 Freq: NEEDED Status: Active Protocol: Document 03/20/24 14:20 AB (Rec: 03/20/24 15:16 AB [id number]) Subjective Physical Therapy Visit Type Type Treatment Note Visit Start Time 14:20 Visit Stop Time 14:45 Number of RATE ENGINEER Visits 0 Physical Therapy Visit Comments Patient Comments agreeable to do PT Therapy Pain Assessment Pain When Pain Assessed At Rest Pain Present Pain Present Pain Reported Location abdomen Intensity 5 Scale Used Numeric (0 - 10) Pain Management Techniques Distraction,Modification of Treatment,Re-positioning, Timing of Activity with Medications M4 PT-IP Mobility and Gait Start: 03/19/24 16:57 Freq: NEEDED Status: Active Protocol: Document 03/20/24 14:20 [facility] (Rec: 03/20/24 15:16 AB [id number]) PT-Bed Mobility Assessment Rolling Type of Rolling Log Rolling Level of Assist Standby Assistance Supine to Sit Supine to Sit Standby Assistance PT-Transfer Assessment Sit to and From Stand Sit to and from Stand Contact Guard Assistance,1 Person Assistance,Use of Upper Extremities Equipment Transfer Assistive Device Gait Belt,Large Based Quad Cane Orthotic/Prosthetic Devices or Brace: No Transfers Transfer Destination Chair Transfer Technique ambulated Transfer Ability Level of Assist Contact Guard Assistance,1 Person Assistance,Use of Upper Extremities Comments Mobility Comments pt supine in bed and agreeable to do PT. reviewed and educated pt regarding his abdominal precautions and log roll bed mobility. pt completed log roll supine to sit SBA and cues for techniques. pt able to sit on EOB SBA. pt completed sit to stand CGA and ambulated using FWW ~ 100 ft CGA. pt presents with slow paced gait with trunk guarding. pt ambulated back to his room and agreed to sit up on the chair. positioned pt on the chair. call light and table placed within reach. informed pt regarding importance of mobility and ambulation and encouraged pt to walk with nursing staff. pt understood and agreed. Gait Assessment Gait Gait Assistance Required: Contact Guard Assist Distance (Feet) 100 Able to Maintain Weight Bearing Status Yes During Gait Assistive Devices Assistive Device Gait Belt,Front Wheeled Walker Orthotic/Prosthetic Devices or Brace: No Gait Deviations General Gait Pattern Decreased Stride Length, Decreased Feet Clearance, Narrow Based Gait Factors Limiting Gait Function Factors Limiting Gait Function Decreased Activity Tolerance, Decreased Strength,Limited Range of Motion,Pain,Poor Balance M5 PT-IP Objective Assessments Start: 03/19/24 16:57 Freq: NEEDED Status: Active Protocol: Document 03/19/24 16:58 KJ (Rec: 03/19/24 17:11 KJ [id number]) Orientation Orientation/Cognition Level of Alertness Alert Orientation Name,Age,Birthday,Month,Date, Year,Day of Week,Place, Situation Language Function Ability No Deficits Noted Safety Awareness Understands Safety Issues Gross Range of Motion Upper Extremity ROM Assessment Within Functional Limits Lower Extremity ROM Assessment Bilaterally Impaired Impairments guarded due to abdominal surgery Strength Comments Strength Comments knee ext 5/5 bilat M6 PT-IP Treatment Start: 03/19/24 16:57 Freq: NEEDED Status: Active Protocol: Document 03/20/24 14:20 AB (Rec: 03/20/24 15:16 AB [id number]) Physical Therapy Treatment Education Education Provided Precautions,Safety M7 PT-IP Assessment and Plan Start: 03/19/24 16:57 Freq: NEEDED Status: Active Protocol: Document 03/20/24 14:20 AB (Rec: 03/20/24 15:16 AB [id number]) PT Summary Assessment and Plan Potential Rehabilitation Potential Good Summary Impairments Pain,ROM,Strength,Balance, Coordination,Bed Mobility, Transfers,Gait,Activity Tolerance Progress Towards Goals Progressing Toward Goals Assessment Summary pt requiring CGA with mobility using FWW. pt presents with slow paced gait and increase trunk guarding and recommending use of FWW at this time for safety. informed pt to obtain a FWW at this time and agreed. he said that he can borrow one from the [employer] and he will inform his to borrow one for him. pt plans to home with spouse to assist him. will continue to assess progress and pt to continue in patient PT to improve strength and mobility independence. Goals Bed Mobility Goal Independent Transfer Goal Independent,Front Wheeled Walker Gait Goal Independent,Front Wheel Walker Gait Distance 200 Other Goals improve transfers and ambulation without AD >300 ft mod I Days to Meet Goals 10 Frequency of Treatment Frequency Of Treatment Once a Day Treatment Plan Physical Therapy Treatment Plan Bed Mobility Training,Transfer Training,Gait Training, Therapeutic Exercise,Post Op Education,Discharge Planning, Neuromuscular Re-ed Recommendations To Nursing Amount of Assist Needed 1 Person Assist Discharge Recommendations PT Discharge Recommendations Home with Assistance Transportation Needs at Discharge Private Vehicle
[2024-03-20] MEDS: SIMETHICONE 80 MG TABLET PO (16:45)
[2024-03-21] VITALS (9 sets, daily range): BP systolic 105–145; BP diastolic 58–87; PULSE 62–73; RESP 15–18; TEMP 36.2–36.6; O2SAT 93–97
[2024-03-21] MEDS: ACETAMINOPHEN 325 MG TABLET 650 MG PO (00:22)
[2024-03-21] MEDS: OXYCODONE IR 10 MG TABLET PO ×2 (00:22→20:44)
[2024-03-21] MEDS: OXYCODONE IR 5 MG TABLET PO ×4 (05:29→17:22)
[2024-03-21 05:34] LABS: Add Manual Diff / Slide Review NO; Basophils Absolute Auto 0 /uL (0-100); Basophils Percent Auto 0.4 % (0-2); Eosinophils Absolute Auto 100 /uL (0-450); Eosinophils Percent Auto 1.8 % (2-4); Hematocrit 31.3 % (41-53); Hemoglobin 10.4 g/dL (13.5-17.5); Lymphocytes Absolute Auto 1700 /uL (1100-4500); Lymphocytes Percent Auto 21.9 % (25-40); Mean Corpuscular HGB Conc 33.1 % (30-36); Mean Corpuscular Hemoglobin 26.8 PG (26-34); Mean Corpuscular Volume 80.9 fL (80-100); Monocytes Absolute Auto 600 /uL (0-900); Monocytes Percent Auto 8.2 % (3-14); Neutrophils Absolute Auto 5400 /uL (1500-7000); Neutrophils Percent Auto 67.7 % (50-75); Platelet Count 349 X10^3/uL (150-400); Red Blood Cell Count 3.86 X10^6/uL (4.5-5.9); Red Cell Distribution Width 13.8 % (11.6-14.8); White Blood Cell Count 7.9 X10^3/uL (4.5-11.0)
[2024-03-21 05:50] LABS: BUN Creatinine Ratio 11.5 (6-22); Blood Urea Nitrogen 9 mg/dL (9-20); Calcium 8.8 mg/dL (8.4-10.2); Carbon Dioxide 29 mmol/L (22-32); Chloride 107 mmol/L (98-107); Estimated Glomerular Filt Rate > 60 mL/min (>60); Glucose 97 mg/dL (70-100); HEMOLYSIS < 15 (0-50); Potassium 3.8 mmol/L (3.4-5.1); Sodium 136 mmol/L (137-145)
[2024-03-21] MEDS: CELECOXIB 200 MG CAPSULE PO ×2 (08:56→20:44)
[2024-03-21] MEDS: lisinopriL 20 MG TABLET PO (08:57)
--- NOTE | 2024-03-21 10:32 | PT.IPTN ---
Current Diagnoses Diverticulitis of large intestine without perforation or abscess without bleeding (03/18/24) Surgery Performed Operation Date: 03/18/24 13:45 Actual Procedures p SIGMOID COLECTOMY WITH PLACEMENT OF VENTRAL MESH(Not Applicable) - Kerwin Richards MD Physical Therapy Treatment Note M2 PT-IP Current Condition Start: 03/19/24 16:57 Freq: NEEDED Status: Active Protocol: Document 03/19/24 16:58 KJ (Rec: 03/19/24 17:11 KJ [id number]) Physical Therapy Current Condition Current Condition Evaluation Date 03/19/24 Treatment Diagnosis impaired mobility Onset Date 03/18/24 M3 PT-IP Subjective Start: 03/19/24 16:57 Freq: NEEDED Status: Active Protocol: Document 03/21/24 10:06 KS (Rec: 03/21/24 11:31 KS [id number]) Subjective Physical Therapy Visit Type Type Treatment Note Visit Start Time 10:06 Visit Stop Time 10:32 Number of [employer] SPECIALIST Visits 1 Physical Therapy Visit Comments Patient Comments agreeable to do PT, family present. Therapy Pain Assessment Pain When Pain Assessed After Treatment Pain Present Pain Present Denied Pain M4 PT-IP Mobility and Gait Start: 03/19/24 16:57 Freq: NEEDED Status: Active Protocol: Document 03/21/24 10:06 KS (Rec: 03/21/24 11:31 KS [id number]) PT-Bed Mobility Assessment Rolling Type of Rolling Log Rolling Level of Assist Contact Guard Assistance Supine to Sit Supine to Sit Contact Guard Assistance,1 Person Assistance Scooting Scooting to Edge of Bed Standby Assistance PT-Transfer Assessment Sit to and From Stand Sit to and from Stand Contact Guard Assistance,1 Person Assistance,Use of Upper Extremities Equipment Transfer Assistive Device Gait Belt,Front Wheeled Walker Orthotic/Prosthetic Devices or Brace: No Transfers Transfer Destination Chair Transfer Technique ambulated Transfer Ability Level of Assist Contact Guard Assistance,1 Person Assistance,Use of Upper Extremities Comments Mobility Comments Pt in bed upon arrival, agreeable to ambulation. CGA for logroll and sup<>sit, SBA for scooting EOB. Pt sit<> Stand w/ FWW CGA. Denied increased pain. Pt ambulated ~ 540 ft w/ FWW and SBA to CGA. He denied increase in pain following ambulation. Transferred to chair and left w/ all needs in reach. Pt prefers walking w/ FWW at this time for increased safety/ balance/support. Gait Assessment Gait Gait Assistance Required: Contact Guard Assist Distance (Feet) 540 Able to Maintain Weight Bearing Status Yes During Gait Assistive Devices Assistive Device Gait Belt,Front Wheeled Walker Gait Deviations General Gait Pattern Decreased Stride Length, Decreased Feet Clearance, Narrow Based Gait Factors Limiting Gait Function Factors Limiting Gait Function Decreased Activity Tolerance, Limited Range of Motion,Pain Comments Gait Comments Pt continues to have slow steady gait w/ NBOS. He does not rely heavily on FWW and likely wont need to use it for long, however feels safer and enjoys the support from using it at this time. Stair Climbing Assessment Comments Stair Climbing Comments Not assessed, no stairs to enter and pt can stay on the first floor. PT-Balance Assessment Sitting Balance and Reactions Static Sitting Balance Ability Good Dynamic Sitting Balance Ability Good Standing Balance and Reactions Static Standing Balance Ability Good Dynamic Standing Balance Ability Good Device Used FWW M5 PT-IP Objective Assessments Start: 03/19/24 16:57 Freq: NEEDED Status: Active Protocol: Document 03/19/24 16:58 KJ (Rec: 03/19/24 17:11 KJ [id number]) Orientation Orientation/Cognition Level of Alertness Alert Orientation Name,Age,Birthday,Month,Date, Year,Day of Week,Place, Situation Language Function Ability No Deficits Noted Safety Awareness Understands Safety Issues Gross Range of Motion Upper Extremity ROM Assessment Within Functional Limits Lower Extremity ROM Assessment Bilaterally Impaired Impairments guarded due to abdominal surgery Strength Comments Strength Comments knee ext 5/5 bilat M6 PT-IP Treatment Start: 03/19/24 16:57 Freq: NEEDED Status: Active Protocol: Document 03/21/24 10:06 KS (Rec: 03/21/24 11:31 MD [id number]) Physical Therapy Treatment Education Education Provided Precautions,Safety Other Treatments Other Treatment Performed reviewed log rolling and precautions for abdominal surgery M7 PT-IP Assessment and Plan Start: 03/19/24 16:57 Freq: NEEDED Status: Active Protocol: Document 03/21/24 10:06 KS (Rec: 03/21/24 11:31 MD [id number]) PT Summary Assessment and Plan Potential Rehabilitation Potential Good Summary Impairments Pain,ROM,Strength,Balance, Coordination,Bed Mobility, Transfers,Gait,Activity Tolerance Progress Towards Goals Progressing Toward Goals Assessment Summary Pt showed good progress today and improved tolerance for ambulation. He requires SBA to CGA for assistance and ambulated ~540 ft using FWW. Pt does not need AD at baseline and is still feeling safer using FWW at this time. He can borrow a FWW from [employer] if needed at d/c. Has supportive spouse who is a PT. Goals Bed Mobility Goal Independent Transfer Goal Independent,Front Wheeled Walker Gait Goal Independent,Front Wheel Walker Gait Distance 200 Other Goals improve transfers and ambulation without AD >300 ft mod I Days to Meet Goals 10 Frequency of Treatment Frequency Of Treatment Once a Day Treatment Plan Physical Therapy Treatment Plan Bed Mobility Training,Transfer Training,Gait Training, Therapeutic Exercise,Post Op Education,Discharge Planning, Neuromuscular Re-ed Recommendations To Nursing Amount of Assist Needed 1 Person Assist Discharge Recommendations PT Discharge Recommendations Home with Assistance Transportation Needs at Discharge Private Vehicle
--- NOTE | 2024-03-21 12:39 | CM.DPNOTE ---
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 Per chart review, no PN from 03/20/24. UR RN contacted Dr. Collier, will round on pt today. Per previous DCP note, anticipate home with family when medically stable. No DCP needs. P: No barriers identified at this time to patient's safe discharge home w/family to assist; close outpatient f/u recommended. CM team will plan to follow clinical course closely in case any DC needs or concerns arise. DALTON Rowland
--- NOTE | 2024-03-21 14:22 | PM.PNPO.1 ---
Subjective Subjective Date Patient Seen: 03/20/24 Interval history: Poor appetite. Pain controlled, passing gas and small BM Exam Vital Signs (past 8 hours): - 03/21/24 08:26 03/21/24 09:48 03/21/24 12:08 Temperature 97.2 F L 98 F Pulse Rate 71 70 Respiratory Rate 18 16 Blood Pressure 145/83 H 138/80 Pulse Oximetry 95 96 97 Oxygen Delivery Method Room Air Oxygen Flow Rate 0 0 03/21/24 13:07 Temperature Pulse Rate Respiratory Rate Blood Pressure Pulse Oximetry 97 Oxygen Delivery Method Room Air Oxygen Flow Rate Oxygen Delivery Method Room Air Oxygen Flow Rate 0 Narrative Exam Narrative: Abdomen distended but soft, dressing dry and intact. Objective Labs 03/21/24 05:10 03/21/24 05:10 Labs: Laboratory Results - last 24 hr 03/21/24 05:10 WBC 7.9 RBC 3.86 L Hgb 10.4 L Hct 31.3 L MCV 80.9 MCH 26.8 MCHC 33.1 RDW 13.8 Plt Count 349 Neut % (Auto) 67.7 Lymph % (Auto) 21.9 L [place] % (Auto) 8.2 Eos % (Auto) 1.8 L Baso % (Auto) 0.4 Neut # (Auto) 5400 Lymph # (Auto) 1700 [place] # (Auto) 600 Eos # (Auto) 100 Baso # (Auto) 0 Sodium 136 L Potassium 3.8 Chloride 107 Carbon Dioxide 29 BUN 9 Creatinine 0.78 Estimated GFR > 60 BUN/Creatinine Ratio 11.5 Glucose 97 Calcium 8.8 [facility] Medical History COVID-19 (06/2023) Surgical History [place] teeth removed History of surgery Social History marital status: number of children: 2 household members: spouse and children Smoking Status: Never smoker alcohol intake: never substance use type: does not use Assessment & Plan Post-op Postoperative Procedures: Procedures Operation Date: 03/18/24 13:45 Actual Procedure Side Surgeon p SIGMOID COLECTOMY WITH PLACEMENT OF VENTRAL MESH Not Applicable Kerwin Richards MD Postoperative status: doing well Postoperative status narrative: no complications Postoperative plan narrative: Supportive care Time Spent With Patient Time with patient: less than 15 minutes Quality VTE Deep Vein Thrombosis/Pulmonary Embolism Present on Admission: No
--- NOTE | 2024-03-21 14:47 | PM.PNPO.1 ---
Subjective Subjective Date Patient Seen: 03/21/24 Time Patient Seen: 14:47 Interval history: Small BMs, appetite still poor. Exam Vital Signs (past 8 hours): - 03/21/24 08:26 03/21/24 09:48 03/21/24 12:08 Temperature 97.2 F L 98 F Pulse Rate 71 70 Respiratory Rate 18 16 Blood Pressure 145/83 H 138/80 Pulse Oximetry 95 96 97 Oxygen Delivery Method Room Air Oxygen Flow Rate 0 0 03/21/24 13:07 Temperature Pulse Rate Respiratory Rate Blood Pressure Pulse Oximetry 97 Oxygen Delivery Method Room Air Oxygen Flow Rate Oxygen Delivery Method Room Air Oxygen Flow Rate 0 Narrative Exam Narrative: abdomen soft, distended, incisional tenderness. abdominal binder on, dressing dry and intact. Objective Labs 03/21/24 05:10 03/21/24 05:10 Labs: Laboratory Results - last 24 hr 03/21/24 05:10 WBC 7.9 RBC 3.86 L Hgb 10.4 L Hct 31.3 L MCV 80.9 MCH 26.8 MCHC 33.1 RDW 13.8 Plt Count 349 Neut % (Auto) 67.7 Lymph % (Auto) 21.9 L [place] % (Auto) 8.2 Eos % (Auto) 1.8 L Baso % (Auto) 0.4 Neut # (Auto) 5400 Lymph # (Auto) 1700 [place] # (Auto) 600 Eos # (Auto) 100 Baso # (Auto) 0 Sodium 136 L Potassium 3.8 Chloride 107 Carbon Dioxide 29 BUN 9 Creatinine 0.78 Estimated GFR > 60 BUN/Creatinine Ratio 11.5 Glucose 97 Calcium 8.8 [facility] Medical History COVID-19 (06/2023) Surgical History [place] teeth removed History of surgery Social History marital status: number of children: 2 household members: spouse and children Smoking Status: Never smoker alcohol intake: never substance use type: does not use Assessment & Plan Post-op Postoperative Procedures: Procedures Operation Date: 03/18/24 13:45 Actual Procedure Side Surgeon p SIGMOID COLECTOMY WITH PLACEMENT OF VENTRAL MESH Not Applicable Kerwin Richards MD Postoperative status: doing well Postoperative plan: routine post-op care Postoperative plan narrative: advance diet Time Spent With Patient Time with patient: 15-24 minutes Quality VTE Deep Vein Thrombosis/Pulmonary Embolism Present on Admission: No
[2024-03-21] MEDS: DOCUSATE 100 MG CAPSULE 200 MG PO ×2 (14:58→20:44)
[2024-03-22 04:09] VITALS: BP 127/80; PULSE 60; RESP 16; TEMP 36.6; O2SAT 98
[2024-03-22] MEDS: OXYCODONE IR 5 MG TABLET PO (05:31)
[2024-03-22 08:00] VITALS: BP 132/87; PULSE 65; RESP 16; TEMP 36.6; O2SAT 95; O2SAT 96
[2024-03-22 08:49] VITALS: BP 132/87
[2024-03-22] MEDS: DOCUSATE 100 MG CAPSULE 200 MG PO ×2 (08:49→20:57)
[2024-03-22] MEDS: lisinopriL 20 MG TABLET PO (08:49)
[2024-03-22] MEDS: CELECOXIB 200 MG CAPSULE PO ×2 (08:49→20:57)
--- NOTE | 2024-03-22 09:40 | PT.IPTN ---
Current Diagnoses Diverticulitis of large intestine without perforation or abscess without bleeding (03/18/24) Surgery Performed Operation Date: 03/18/24 13:45 Actual Procedures p SIGMOID COLECTOMY WITH PLACEMENT OF VENTRAL MESH(Not Applicable) - Kerwin Richards MD Physical Therapy Treatment Note M2 PT-IP Current Condition Start: 03/19/24 16:57 Freq: NEEDED Status: Active Protocol: Document 03/19/24 16:58 KJ (Rec: 03/19/24 17:11 KJ [id number]) Physical Therapy Current Condition Current Condition Evaluation Date 03/19/24 Treatment Diagnosis impaired mobility Onset Date 03/18/24 M3 PT-IP Subjective Start: 03/19/24 16:57 Freq: NEEDED Status: Active Protocol: Document 03/22/24 09:31 AB (Rec: 03/22/24 09:40 AB [id number]) Subjective Physical Therapy Visit Type Type Treatment Note Visit Start Time 09:14 Visit Stop Time 09:23 Number of SOYBE[employer] GROWER Visits 2 Physical Therapy Visit Comments Patient Comments Patient agreeable, rates pain 2/10 start of session. Family in during treatment. Therapy Pain Assessment Pain When Pain Assessed After Treatment Pain Present Pain Present Pain Reported Location abdomen Intensity 3 M4 PT-IP Mobility and Gait Start: 03/19/24 16:57 Freq: NEEDED Status: Active Protocol: Document 03/22/24 09:31 AB (Rec: 03/22/24 09:40 AB [id number]) PT-Bed Mobility Assessment Rolling Type of Rolling Log Rolling Level of Assist Standby Assistance Supine to Sit Supine to Sit Standby Assistance Scooting Scooting to Edge of Bed Standby Assistance PT-Transfer Assessment Equipment Transfer Assistive Device Gait Belt,Front Wheeled Walker Orthotic/Prosthetic Devices or Brace: No Transfer Ability Level of Assist Standby Assistance,1 Person Assistance,Use of Upper Extremities Comments Mobility Comments Pt in bed on arrival, Supervision to Independent for ambulation, supervision and verbal cues for log roll. Ascend and descend 6 inch step with supervision with FWW X 1 then with one rail Supervision X 1 independent X 1. Gait Assessment Gait Gait Assistance Required: Independent Distance (Feet) 80 Able to Maintain Weight Bearing Status Yes During Gait Assistive Devices Assistive Device Gait Belt,Front Wheeled Walker Gait Deviations General Gait Pattern Decreased Stride Length, Decreased Feet Clearance Factors Limiting Gait Function Factors Limiting Gait Function Decreased Activity Tolerance, Pain Comments Gait Comments Likely pain limiting gait pattern, does not rely heavily on FWW for ambulation or step . Stair Climbing Assessment Comments Stair Climbing Comments Supervision to independent for one step with FWW and one step with one rail. PT-Balance Assessment Sitting Balance and Reactions Static Sitting Balance Ability Good Dynamic Sitting Balance Ability Good Standing Balance and Reactions Static Standing Balance Ability Good Dynamic Standing Balance Ability Good Device Used FWW M5 PT-IP Objective Assessments Start: 03/19/24 16:57 Freq: NEEDED Status: Active Protocol: Document 03/19/24 16:58 KJ (Rec: 03/19/24 17:11 KJ [id number]) Orientation Orientation/Cognition Level of Alertness Alert Orientation Name,Age,Birthday,Month,Date, Year,Day of Week,Place, Situation Language Function Ability No Deficits Noted Safety Awareness Understands Safety Issues Gross Range of Motion Upper Extremity ROM Assessment Within Functional Limits Lower Extremity ROM Assessment Bilaterally Impaired Impairments guarded due to abdominal surgery Strength Comments Strength Comments knee ext 5/5 bilat M6 PT-IP Treatment Start: 03/19/24 16:57 Freq: NEEDED Status: Active Protocol: Document 03/22/24 09:31 AB (Rec: 03/22/24 09:40 AB [id number]) Physical Therapy Treatment Education Education Provided Precautions,Safety Other Treatments Other Treatment Performed reviewed log rolling and precautions for abdominal surgery M7 PT-IP Assessment and Plan Start: 03/19/24 16:57 Freq: NEEDED Status: Active Protocol: Document 03/22/24 09:31 AB (Rec: 03/22/24 09:40 AB [id number]) PT Summary Assessment and Plan Potential Rehabilitation Potential Good Summary Impairments Pain,ROM,Strength,Balance, Coordination,Bed Mobility, Transfers,Gait,Activity Tolerance Assessment Summary Patient with good return demonstration for step training progressed to I with one rail. Goals Bed Mobility Goal Independent Transfer Goal Independent,Front Wheeled Walker Gait Goal Independent,Front Wheel Walker Other Goals Ambulated 80 feet Independent with FWW Days to Meet Goals 10 Frequency of Treatment Frequency Of Treatment Once a Day Treatment Plan Physical Therapy Treatment Plan Bed Mobility Training,Transfer Training,Gait Training, Therapeutic Exercise,Post Op Education,Discharge Planning, Neuromuscular Re-ed Recommendations To Nursing Amount of Assist Needed 1 Person Assist Discharge Recommendations PT Discharge Recommendations Home with Assistance Transportation Needs at Discharge Private Vehicle
--- NOTE | 2024-03-22 13:07 | PM.PNPO.1 ---
Subjective Subjective Date Patient Seen: 03/22/24 Time Patient Seen: 13:07 Interval history: Feeling better. Still with intermittent waves of pain and nausea. Exam Vital Signs (past 8 hours): - 03/22/24 08:00 03/22/24 08:00 03/22/24 08:49 Temperature 97.8 F Pulse Rate 65 Respiratory Rate 16 Blood Pressure 132/87 132/87 Pulse Oximetry 96 95 Oxygen Delivery Method Room Air Oxygen Flow Rate 0 0 Oxygen Delivery Method Room Air Oxygen Flow Rate 0 Narrative Exam Narrative: abdomen benign with incision discomfort. Objective Labs 03/21/24 05:10 03/21/24 05:10 [facility] Medical History COVID-19 (06/2023) Surgical History [place] teeth removed History of surgery Social History marital status: number of children: 2 household members: spouse and children Smoking Status: Never smoker alcohol intake: never substance use type: does not use Assessment & Plan Post-op Postoperative Procedures: Procedures Operation Date: 03/18/24 13:45 Actual Procedure Side Surgeon p SIGMOID COLECTOMY WITH PLACEMENT OF VENTRAL MESH Not Applicable Kerwin Richards MD Postoperative status: doing well and marginal pain control Postoperative plan narrative: Add scopolamine and anticipate discharge tomorrow Time Spent With Patient Time with patient: 15-24 minutes Quality VTE Deep Vein Thrombosis/Pulmonary Embolism Present on Admission: No
--- NOTE | 2024-03-22 15:13 | CM.DPC ---
DCP Cont: Per Surgeon, pt's diet was advanced to general today but having ongoing pain and some nausea and not yet medically stable today but anticipate likely tomorrow. Per PT, pt ambulating steady but cautious and still prefers the FWW for additional support and stability and recommending safe home with family assist. Plan: SW to follow closely for possible discharge home tomorrow Tues if medically stable via spouse POV and any further identified discharge planning needs. DALTON Ramos
[2024-03-22 16:00] VITALS: BP 123/76; PULSE 69; RESP 16; TEMP 36.4; O2SAT 98
[2024-03-22] MEDS: GABAPENTIN 300 MG CAPSULE PO (20:57)
[2024-03-22 23:57] VITALS: BP 122/76; PULSE 68; RESP 18; TEMP 35.9; O2SAT 99
[2024-03-23] VITALS: BP 122/76; PULSE 68; RESP 18; TEMP 35.9; O2SAT 99
[2024-03-23 04:30] VITALS: BP 128/79; PULSE 60; RESP 18; TEMP 36.2; O2SAT 98
[2024-03-23 07:48] VITALS: O2SAT 97
[2024-03-23 08:00] VITALS: BP 124/88; PULSE 63; RESP 16; TEMP 36.2; O2SAT 97
--- NOTE | 2024-03-23 08:14 | PM.DS.1 ---
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 Years of diverticulitis generally well managed with p.o. antibiotics. He has never been hospitalized or required intervention previously. His most recent bout of diverticulitis began approximately 2 weeks ago. Despite 2 weeks of antibiotic therapy he has failed to improve. CT abdomen pelvis demonstrates an abscess between the bladder and the sigmoid colon as well as significant inflammation of the sigmoid colon. The current size of the abscess measures 4 cm and according to Radiology it is not amenable to percutaneous drainage at this time. No previous abdominal surgery. Overall he has had malaise low-grade fever anorexia and lower abdominal pain. Discharge Providers Provider Date of admission: 03/18/24 12:19 Discharge Date: 03/23/24 Primary care physician: Grant Parikh MD Consults: 03/18/24 19:12 Consult to Occupational Therapy Evaluate & Treat Comment: Physician Instructions: Evaluate and treat Consult to Physical Therapy Evaluate & Treat Comment: Physician Instructions: Evaluate and Treat Discharge provider: Kerwin Richards MD Summary Hospital Course Discharge Diagnosis: Diverticulitis Laparoscopic-assisted colectomy Obesity Hospital Course: Tate underwent a laparoscopic assisted sigmoid colectomy March 23, 2024. He had severe inflammation within the pelvis secondary to chronic complicated disease however a primary anastomosis was successfully performed many did not require a diverting ostomy. Postoperative recovery was unremarkable. Surgical pathology demonstrates the following Diagnosis: SIGMOID COLON, SEGMENTAL RESECTION: 1. Severe diverticulitis, with submucosal abscess formation, areas of fat necrosis and active serositis. 2. Twelve reactive lymph nodes with no evidence of neoplasia. 3. Mural inflammation and fat necrosis approximates one (blue-inked) stapled surgical margin. At the time of discharge he is ambulatory tolerance of a regular diet, has return of bowel function and his pain is well controlled with oral medication. Exam Vital Signs (past 8 hours): - 03/23/24 04:30 03/23/24 04:30 Temperature 97.2 F L Pulse Rate 60 Respiratory Rate 18 Blood Pressure 128/79 Pulse Oximetry 98 98 Oxygen Delivery Method Room Air Oxygen Flow Rate 0 0 Oxygen Delivery Method Room Air Oxygen Flow Rate 0 Narrative Exam Narrative: General adult man alert oriented no acute distress Chest nonlabored respiration Abdomen soft appropriately tender to palpation. Midline dressing is clean dry intact. Objective Labs 03/21/24 05:10 03/21/24 05:10 [facility] Medical History COVID-19 (06/2023) Surgical History [place] teeth removed History of surgery Social History marital status: number of children: 2 household members: spouse and children Smoking Status: Never smoker alcohol intake: never substance use type: does not use Discharge Plan Discharge Plan Patient Disposition: Home Provider Discharge Comment: -Okay to shower -Do not submerge wounds in water until seen in follow-up. -No lifting >10 lbs x 4 weeks. -Walking only for exercise for 4 weeks. -No driving while taking narcotics. Discharge orders & Medications Prescriptions: New docusate sodium [Colace] 100 mg capsule 100 mg PO BID Qty: 30 0RF ibuprofen 200 mg tablet 400 mg PO Q6H Qty: 60 0RF oxycodone 5 mg tablet 5 mg PO Q6H PRN (Reason: pain) Qty: 20 0RF acetaminophen [Tylenol] 325 mg capsule 650 mg PO QID PRN (Reason: pain) Qty: 60 0RF Continued lisinopril 20 mg tablet 20 mg PO DAILY Qty: 90 3RF Discontinued metronidazole 500 mg tablet 1,000 mg PO .COMPLEX Qty: 6 0RF Rx Instructions: 1,000 mg PO 1 g PO; TAKE 2 tabs at 1PM, 2 PM, and 10 PM the day prior to surgery; Follow up/Referrals: Grant Parikh MD [Primary Care Provider] - Kerwin Richards MD [Physician] - Diet/Activity/Treatments Diet: Diet as Tolerated Skin/Wound/Dressing Care Report to your healthcare provider any signs of infection, such as:: chills, fever, increased pain, unusual drainage and unusual redness Visit Report/Discharge Packet Instructions: DI for Colectomy, DI for Laparoscopy, DI for Prescription Opioid Use, Oxycodone, [facility]: Wound Care Stand Alone Forms: Patient Portal/API, Stroke Signs & Symptoms Discharge Data Primary Care Provider: Grant Parikh VTE Deep Vein Thrombosis/Pulmonary Embolism Present on Admission: No
[2024-03-23 08:23] VITALS: BP 124/88
[2024-03-23] MEDS: lisinopriL 20 MG TABLET PO (08:23)
[2024-03-23] MEDS: GABAPENTIN 300 MG CAPSULE PO (08:24)
[2024-03-23] MEDS: CELECOXIB 200 MG CAPSULE PO (08:24)
[2024-03-23] MEDS: DOCUSATE 100 MG CAPSULE 200 MG PO (08:24)
--- NOTE | 2024-03-23 10:06 | PC.NURSE ---
Pt is dressed and ready for discharge home with Spouse. IV has been removed. Went over d/c instructions with Pt and Spouse. Discussed d/c meds, time of last dose, reviewed stroke education, s/s of infection, no lifting greater than 10lbs, drink plenty of fluids to prevent constipation or dehydration, and follow up appointment. Pt out via w/c by [employer]ER to POV with Spouse and all belongings.
--- NOTE | 2024-03-26 03:00 | PC.NURSE ---
Late entry: Oxycodone 5mg administered at 0450 on 03/21/24. Documentation not saved on NOV.
== END 2024-03-23 10:09 | disposition home or self-care (01) | DRG 329 ==
PROVIDERS: Admitting Provider Surgery; PCP Family Medicine; Referring Provider Family Medicine; Visit Provider Surgery
PROC: 0DTE0ZZ Resection of Large Intestine, Open Approach (ICD-10-PCS; principal; 2024-03-18 13:45)
DX: K57.20 Diverticulitis of large intestine with perforation and abscess without bleeding (principal); K65.1 Peritoneal abscess; I96 Gangrene, not elsewhere classified; I10 Essential (primary) hypertension
CPT/HCPCS: 36415; 80048; 85025; 97116; 97161; 97166; 97530; 97535; C1713; J1100; J1170; J1885; J2405; J2543; J2704; J3010; J3490